=== PATIENT | female | born 1955 | race Caucasian/White ===

== ENCOUNTER 2017-12-16 08:38 | Day surgery (SDC) | payer OTHER ==
[2017-12-16] MEDS ORDERED: PROPOFOL 20 ML (09:27)
== END 2017-12-16 11:49 | disposition home or self-care (01) ==
LOC: GIL 08:38
DX: Z12.11 Encounter for screening for malignant neoplasm of colon (principal); D12.2 Benign neoplasm of ascending colon; K64.4 Residual hemorrhoidal skin tags
CPT/HCPCS: 45380; 88305